=== PATIENT | female | born 1980 | race Caucasian/White ===

== ENCOUNTER 2023-11-05 15:56 | Emergency (ER) | payer OTHER ==
[~2023-11-05] VITALS: Ht 162.6 cm; Wt 92.6 kg
[2023-11-05] MEDS ORDERED: MECL-209 PO ×2 (16:01→18:47)
[2023-11-05] MEDS ORDERED: SYNT125T PO (16:01)
[2023-11-05] MEDS ORDERED: ZANA4CAP PO (16:01)
[2023-11-05] MEDS ORDERED: ZOLO25TA PO (16:01)
[2023-11-05 17:28] LABS: BASO % 0.7 % (0.0-1.0); EOS # 0.1 10^3/uL (0.0-0.5); EOS % 2.4 % (0.0-3.0); HEMATOCRIT 41.9 % (36.0-47.0); HEMOGLOBIN 13.8 g/dl (12.0-15.5); LYMPH # 1.6 10^3/uL (1.5-5.0); MEAN CORPUSCULAR HEMOGLOBIN 29.5 pg (27.0-33.0); MEAN CORPUSCULAR HGB CONC 32.9 g/dl (32.0-36.5); MEAN CORPUSCULAR VOLUME 89.5 fl (80.0-96.0); MONO # 0.3 10^3/uL (0.0-0.8); MONO % 4.6 % (2.0-8.0); NEUTROPHILS # 3.8 10^3/uL (1.5-8.5); NEUTROPHILS % 65.1 % (36.0-66.0); PLATELET COUNT, AUTOMATED 287 10^3/uL (150-450); RED BLOOD COUNT 4.68 10^6/uL (4.00-5.40); WHITE BLOOD COUNT 5.8 10^3/uL (4.0-10.0)
[2023-11-05] MEDS ORDERED: MECLIZINE 25 MG TABLET PO ONE (18:45)
[2023-11-05] MEDS ORDERED: DOXYCYCLINE HYCLATE 100MG TABLET PO ONE (18:45)
[2023-11-05] MEDS ORDERED: DOXY-443 PO (18:47)
[2023-11-05] MEDS ORDERED: NASA1SPR NARES (18:47)
[2023-11-05 18:50] VITALS: BP 154/80; TEMP 98; O2SAT 97
== END 2023-11-05 18:58 | disposition home or self-care (01) ==
LOC: M ED 15:56
DX: H81.4 Vertigo of central origin (principal); H66.92 Otitis media, unspecified, left ear; R03.0 Elevated blood-pressure reading, without diagnosis of hypertension; F41.9 Anxiety disorder, unspecified; F32.A Depression, unspecified; M32.10 Systemic lupus erythematosus, organ or system involvement unspecified; Z88.0 Allergy status to penicillin; Z88.8 Allergy status to other drugs, medicaments and biological substances; Z79.899 Other long term (current) drug therapy; Z79.52 Long term (current) use of systemic steroids